=== PATIENT | male | born 1990 | race Asian ===

== ENCOUNTER 2017-07-25 08:38 | Emergency (ER) | payer MEDICAID ==
[2017-07-25] MEDS: LIDOCAINE 1%/EPI 30 ML INJ INJ (09:53)
[2017-07-25 10:13] LABS: ADD MAN DIFF? NO
[2017-07-25 10:15] LABS: WHITE BLOOD COUNT 8.3 10^3/ul (4.8-10.8)
[2017-07-25 10:15] LABS: BASOPHILS % 0.4 % (0.0-2.0); EOSINOPHILS # 0.3 10^3/ul (0.0-0.5); EOSINOPHILS % 3.8 % (0.0-7.0); HEMATOCRIT 43.8 % (42.0-52.0); LYMPHOCYTES # 1.9 10^3/ul (0.8-2.9); LYMPHOCYTES % 22.8 % (15.0-51.0); MEAN CORPUSCULAR HEMOGLOBIN 29.5 pg (29.0-33.0); MEAN CORPUSCULAR HGB CONC 34.2 g/dl (32.0-37.0); MEAN CORPUSCULAR VOLUME 86.2 fl (82.0-101.0); MEAN PLATELET VOLUME 8.8 fl (7.4-10.4); MONOCYTE # 0.9 10^3/ul (0.3-0.9); MONOCYTES % 10.5 % (0.0-11.0); NEUTROPHIL # 5.1 10^3/ul (1.6-7.5); PLATELET COUNT 264 10^3/UL (140-415); RED BLOOD COUNT 5.08 10^6/ul (4.70-6.10); RED CELL DISTRIBUTION WIDTH 12.3 % (11.5-14.5)
[2017-07-25 10:32] LABS: ALANINE AMINOTRANSFERASE 42 IU/L (13-69); ALBUMIN 4.5 g/dl (3.3-4.9); ALBUMIN/GLOBULIN RATIO 1.18; ALKALINE PHOSPHATASE 90 IU/L (42-121); ANION GAP 16 (8-16); ASPARTATE AMINO TRANSFERASE 24 IU/L (15-46); BILIRUBIN,INDIRECT 0.3 mg/dl (0-1.1); BILIRUBIN,TOTAL 0.3 mg/dl (0.2-1.3); BLOOD UREA NITROGEN 9 mg/dl (7-20); CALCIUM 9.2 mg/dl (8.4-10.2); CARBON DIOXIDE 29 mmol/L (21-31); CHLORIDE 101 mmol/L (97-110); CREATININE 0.91 mg/dl (0.61-1.24); GLUCOSE 108 mg/dl (70-220); LIPASE 127 U/L (23-300); POTASSIUM 3.9 mmol/L (3.5-5.1); SODIUM 142 mmol/L (135-144); TOTAL PROTEIN 8.3 g/dl (6.1-8.1)
[2017-07-25 10:35] LABS: INR 0.98; PROTIME 13.1 Sec (11.9-14.9)
[2017-07-25 10:36] LABS: PARTIAL THROMBOPLASTIN TIME 28.6 Sec (25.0-35.0)
[2017-07-25] MEDS: IOHEXOL 300MG/ML 150 ML BTL (12:36)
[2017-07-25] MEDS: SOD CHLORIDE 0.9% 100 ML (12:37)
== END 2017-07-25 13:30 | disposition home or self-care (01) ==
LOC: FTE 08:38
DX: L05.02 Pilonidal sinus with abscess (principal); R10.9 Unspecified abdominal pain
CPT/HCPCS: 36415; 74177; 80053; 83690; 85025; 85610; 85730; 99284-25

== ENCOUNTER → 2017-11-08 | Outpatient (CLI) | payer MEDICAID ==
[2017-11-08 11:56] LABS: ADD MAN DIFF? NO
[2017-11-08 11:58] LABS: BASOPHILS % 0.5 % (0.0-2.0); EOSINOPHILS # 0.5 10^3/ul (0.0-0.5); EOSINOPHILS % 5.7 % (0.0-7.0); HEMATOCRIT 43.7 % (42.0-52.0); HEMOGLOBIN 14.5 g/dl (14.0-18.0); LYMPHOCYTES # 2.1 10^3/ul (0.8-2.9); LYMPHOCYTES % 25.8 % (15.0-51.0); MEAN CORPUSCULAR HEMOGLOBIN 28.8 pg (29.0-33.0); MEAN CORPUSCULAR HGB CONC 33.2 g/dl (32.0-37.0); MEAN CORPUSCULAR VOLUME 86.9 fl (82.0-101.0); MEAN PLATELET VOLUME 9.1 fl (7.4-10.4); MONOCYTE # 0.7 10^3/ul (0.3-0.9); MONOCYTES % 8.3 % (0.0-11.0); NEUTROPHIL # 4.8 10^3/ul (1.6-7.5); NEUTROPHILS % 59.3 % (39.0-77.0); PLATELET COUNT 269 10^3/UL (140-415); RED BLOOD COUNT 5.03 10^6/ul (4.70-6.10); RED CELL DISTRIBUTION WIDTH 12.3 % (11.5-14.5)
[2017-11-08 11:58] LABS: WHITE BLOOD COUNT 8.1 10^3/ul (4.8-10.8)
[2017-11-08 12:17] LABS: ALANINE AMINOTRANSFERASE 35 IU/L (13-69); ALBUMIN 4.2 g/dl (3.3-4.9); ALBUMIN/GLOBULIN RATIO 1.13; ALKALINE PHOSPHATASE 78 IU/L (42-121); ANION GAP 16 (8-16); ASPARTATE AMINO TRANSFERASE 23 IU/L (15-46); BILIRUBIN,INDIRECT 0.3 mg/dl (0-1.1); BILIRUBIN,TOTAL 0.3 mg/dl (0.2-1.3); CARBON DIOXIDE 29 mmol/L (21-31); CHLORIDE 103 mmol/L (97-110); GLUCOSE 105 mg/dl (70-220); TOTAL PROTEIN 7.9 g/dl (6.1-8.1)
[2017-11-08 12:18] LABS: BLOOD UREA NITROGEN 9 mg/dl (7-20); CALCIUM 9.1 mg/dl (8.4-10.2); CREATININE 0.99 mg/dl (0.61-1.24); POTASSIUM 3.7 mmol/L (3.5-5.1); SODIUM 144 mmol/L (135-144)
[2017-11-08 12:20] LABS: INR 0.95; PROTIME 12.8 Sec (11.9-14.9)
[2017-11-08 12:21] LABS: PARTIAL THROMBOPLASTIN TIME 28.2 Sec (25.0-35.0)
== END | disposition home or self-care (01) ==
LOC: LAB 08:00
DX: K62.5 Hemorrhage of anus and rectum (principal)
CPT/HCPCS: 80053; 85025; 85610; 85730

== ENCOUNTER 2017-12-23 09:26 | Day surgery (SDC) | payer OTHER, MEDICAID ==
[~2017-12-23 09:26] MED LIST: PROPOFOL 200 MG INJ
[2017-12-23] MEDS ORDERED: CEFAZOLIN 1 GM/50 ML (PMX) 50 ML IVPB (11:00)
[2017-12-23] MEDS ORDERED: SOD CHLORIDE 0.9% 1,000 ML IV (11:00)
[2017-12-23] MEDS ORDERED: ROCURONIUM 50 MG INJ (12:19)
[2017-12-23] MEDS ORDERED: PROPOFOL 100 ML ×2 (12:19→13:02)
[2017-12-23] MEDS ORDERED: FENTAnyl 50 MCG/ML VIAL (12:19)
[2017-12-23] MEDS ORDERED: MIDAZOLAM 1 MG/ML 2 ML INJ (12:19)
[2017-12-23] MEDS ORDERED: LIDOCAINE 100 MG SYRINGE (12:19)
[2017-12-23] MEDS ORDERED: CEFAZOLIN 1 GM INJ (12:37)
[2017-12-23] MEDS ORDERED: ACETAMINOPHEN 1000MG/100ML IV 100 ML (12:37)
[2017-12-23] MEDS ORDERED: SUGAMMADEX SODIUM 200 MG/2 ML VIAL IV ×2 (12:38→13:10)
[2017-12-23] MEDS ORDERED: GLYCOPYRROLATE 0.4 MG INJ (12:38)
[2017-12-23] MEDS ORDERED: ONDANSETRON 4 MG INJ ×2 (12:38→14:00)
[2017-12-23] MEDS ORDERED: DEXAMETHASONE 4 MG/ML 1 ML INJ (12:38)
[2017-12-23] MEDS: BUPIVACAINE 0.5%/EPI (SDV) 30 ML INJ (12:56)
[2017-12-23] MEDS: LIDOCAINE 1% (MPF) 30 ML INJ (12:56)
[2017-12-23] MEDS ORDERED: MEPERIDINE 25 MG INJ (14:00)
[2017-12-23] MEDS: MEPERIDINE 25 MG INJ IV (14:06)
== END 2017-12-23 15:12 | disposition home or self-care (01) ==
LOC: SDS 09:26
DX: K64.9 Unspecified hemorrhoids (principal); K60.3 Anal fistula
CPT/HCPCS: 46270

== ENCOUNTER 2018-09-07 23:46 | Emergency (ER) | payer OTHER ==
[2018-09-08] MEDS: ACETAMINOPHEN 500 MG TAB PO (04:59)
[2018-09-08] MEDS: KETOROLAC 60 MG INJ IM (05:00)
[2018-09-08 05:34] LABS: ADD UMIC YES; UR ASCORBIC ACID NEGATIVE (NEGATIVE); UR BILIRUBIN (Dip) NEGATIVE (NEGATIVE); UR BLOOD (Dip) 1+ mg/dL (NEGATIVE); UR CLARITY CLEAR (CLEAR); UR COLOR STRAW (YELLOW); UR GLUCOSE (Dip) NEGATIVE (NEGATIVE); UR KETONES (Dip) NEGATIVE (NEGATIVE); UR LEUKOCYTE ESTERASE (Dip) NEGATIVE Leu/ul (NEGATIVE); UR NITRITE (Dip) NEGATIVE (NEGATIVE); UR RBC 0 /HPF (0-5); UR SPECIFIC GRAVITY (Dip) 1.015 (1.003-1.030); UR TOTAL PROTEIN (Dip) NEGATIVE (NEGATIVE); UR UROBILINOGEN (Dip) NEGATIVE (NEGATIVE); UR WBC 0 /HPF (0-5)
[2018-09-08] MEDS ORDERED: MAGNESIUM CITRATE 300 ML BTL PO (06:00)
[2018-09-08] MEDS: MAGNESIUM CITRATE 300 ML BTL PO (06:40)
== END 2018-09-08 06:45 | disposition home or self-care (01) ==
LOC: FTE 23:46
DX: K59.00 Constipation, unspecified (principal); R31.9 Hematuria, unspecified
CPT/HCPCS: 74019; 81001; 99284-25